=== PATIENT | male | born 1935 | race Caucasian/White ===

== ENCOUNTER 2018-01-31 12:11 | Inpatient (IN) | payer MEDICARE, OTHER ==
[~2018-01-31] VITALS: Ht 172.7 cm; Wt 78.6 kg
[~2018-01-31 12:11] MED LIST: AMLO10TA6 PO; ASPI-496 PO; ATOR40TA78 PO; BENOZEPRIL PO; CLON0.2T PO; DIGO250T PO; FENO200C PO; GEMF600T4 PO; GLIP5TAB10 PO; Hydrocodone Bit/Acetaminophen PO; INSU100I11 SQ-INSULIN; NIFE60TA13 PO; TAMS0.4C2 PO
[2018-01-31] MEDS ORDERED: DILTIAZEM 5 MG/ML, 5ML ONE ×2 (12:29→13:17)
[2018-01-31] MEDS ORDERED: SODIUM CHLORIDE 0.9% 1,000ML IVBOLUS ONE (12:30)
[2018-01-31] MEDS ORDERED: PLEASE ENTER HEIGHT AND WEIGHT MC SCH (12:30)
[2018-01-31] MEDS ORDERED: DILTIAZEM 5 MG/ML, 5ML IV ONE (12:30)
[2018-01-31 13:03] LABS: BASOPHILS % (AUTO) 0 % (0-1); EOSINOPHILS % (AUTO) 0 % (1-7); LYMPHOCYTES # (AUTO) 0.32 x10^3/uL (1-3.4); LYMPHOCYTES % (AUTO) 2 % (22-44); MD NO; MEAN CORPUSCULAR HEMOGLOBIN 32.9 pg (27.5-34.5); MEAN CORPUSCULAR HGB CONC 34.6 g/dL (33.2-36.2); MEAN CORPUSCULAR VOLUME 95.2 fL (81-97); MEAN PLATELET VOLUME 9.5 fL (7.4-10.4); MONOCYTES # (AUTO) 0.65 x10^3/uL (0.2-0.8); MONOCYTES % (AUTO) 5 % (2-9); NEUTROPHILS # (AUTO) 13.17 x10^3/uL (1.8-6.8); NEUTROPHILS % (AUTO) 93 % (42-75); PLATELET COUNT 190 x10^3/uL (130-400); RED CELL DISTRIBUTION WIDTH 13.1 % (9.4-14.8)
[2018-01-31] MEDS: DILTIAZEM 125 MG in DEXTROSE 5% 100 ML IV SCH (13:10)
[2018-01-31 13:16] LABS: ALBUMIN 3.1 g/dL (3.4-5.0); ANION GAP 16 mmol/L (5-15); CALCIUM 8.7 mg/dL (8.5-10.1); CHLORIDE 106 mmol/L (98-107); INTERNATIONAL NORMALIZED RATIO 1.1 (0.93-1.1); PROTHROMBIN TIME 11.3 Seconds (9.6-11.5)
[2018-01-31 13:19] LABS: ALANINE AMINOTRANSFERASE 30 U/L (12-78); BILIRUBIN,TOTAL 1.3 mg/dL (0.2-1.0); CREATINE KINASE, TOTAL 910 U/L (39-308); CREATININE 1.71 mg/dL (0.7-1.3); TOTAL PROTEIN 7.1 g/dL (6.4-8.2); TROPONIN I 0.041 ng/mL (0.000-0.045)
[2018-01-31 13:30] LABS: ALKALINE PHOSPHATASE 88 U/L (45-117); FREE T4 (FREE THYROXINE) 1.16 ng/dL (0.76-1.46)
[2018-01-31] MEDS ORDERED: DILTIAZEM 5 MG/ML, 5ML IVPush ONE (13:30)
[2018-01-31] MEDS ORDERED: hydrALAzine 20 MG/ML, 1ML IV PRN (13:30)
[2018-01-31] MEDS ORDERED: hydrALAzine 20 MG/ML, 1ML ONE (13:46)
[2018-01-31] MEDS ORDERED: LABETALOL 5MG/ML, 20ML IVPush PRN (14:30)
[2018-01-31] MEDS ORDERED: DOCUSATE 100 MG CAPSULE PO PRN (14:30)
[2018-01-31] MEDS ORDERED: GUAIFENESIN/COD200MG-20MG/10ML LIQUID PO PRN (14:30)
[2018-01-31] MEDS ORDERED: ONDANSETRON 2MG/ML, 2ML IVPush PRN (14:30)
[2018-01-31] MEDS ORDERED: ACETAMINOPHEN 325 MG TABLET PO PRN (14:30)
[2018-01-31 14:45] VITALS: BP 182/94
[2018-01-31] MEDS: DILTIAZEM 125 MG in SODIUM CHLORIDE 0.9% 100 ML IV SCH (15:00)
[2018-01-31] MEDS ORDERED: ENOXAPARIN 40 MG/0.4 ML SQ SCH (15:00)
[2018-01-31] MEDS ORDERED: MAGNESIUM SULFATE PMX 2GM/50ML 50 ML IV ONE (15:00)
[2018-01-31] MEDS: CEFDINIR 300 MG CAPSULE PO SCH ×2 (15:06→20:54)
[2018-01-31] MEDS: CLINDAMYCIN 300 MG CAPSULE PO SCH ×2 (15:06→20:54)
[2018-01-31 15:19] VITALS: BP 144/84
[2018-01-31 15:38] LABS: HEMOGLOBIN A1C 8.1 % (4.2-6.3)
[2018-01-31] MEDS: SODIUM CHLORIDE 0.9% 1,000 ML IV SCH (16:48)
[2018-01-31] MEDS: ERYTHROMYCIN OPHTH 0.5%, 1GM EACHEYE SCH ×2 (16:49→20:56)
[2018-01-31] MEDS: INSULIN LISPRO 100 UNITS/ML, PEN SQ-INSULIN SCH ×2 (16:56→21:29)
[2018-01-31 18:48] LABS: MICROSCOPIC INDICATED
[2018-01-31 18:57] LABS: AMPHETAMINE SCREEN, URINE Negative (Negative); BARBITURATE SCREEN, URINE Negative (Negative); BENZODIAZEPINE SCREEN, URINE Negative (Negative); CANNABINOID SCREEN, URINE Negative (Negative); COCAINE SCREEN, URINE Negative (Negative); METHADONE SCREEN, URINE Negative (Negative); OPIATE SCREEN, URINE Negative (Negative)
[2018-01-31 19:00] LABS: CULTURE INDICATED? NO
[2018-01-31 20:45] VITALS: BP 149/64
[2018-01-31] MEDS: GEMFIBROZIL 600 MG TABLET PO SCH (20:54)
[2018-01-31] MEDS: TAMSULOSIN 0.4 MG CAP.ER.24H PO SCH (20:54)
[2018-01-31] MEDS: LACTULOSE 20 GM/30 ML UDC PO SCH (20:54)
[2018-01-31] MEDS: INSULIN GLARGINE 100 UNITS/ML, PEN SQ-INSULIN SCH (21:30)
[2018-02-01] VITALS (7 sets, daily range): BP systolic 94–135; BP diastolic 57–82
[2018-02-01] MEDS: DILTIAZEM 125 MG in DEXTROSE 5% 100 ML IV SCH ×2 (00:37→00:38)
[2018-02-01] MEDS: SODIUM CHLORIDE 0.9% 1,000 ML IV SCH (00:39)
[2018-02-01] MEDS: DILTIAZEM 125 MG in SODIUM CHLORIDE 0.9% 100 ML IV SCH (01:06)
[2018-02-01] MEDS: ASPIRIN 81 MG TABLET EC PO SCH (05:02)
[2018-02-01] MEDS: ERYTHROMYCIN OPHTH 0.5%, 1GM EACHEYE SCH ×4 (05:02→20:30)
[2018-02-01] MEDS: CLINDAMYCIN 300 MG CAPSULE PO SCH ×3 (05:02→22:20)
[2018-02-01 05:25] LABS: BASOPHILS # (AUTO) 0.01 x10^3/uL (0-0.1); BASOPHILS % (AUTO) 0 % (0-1); EOSINOPHILS # (AUTO) 0.02 x10^3/uL (0-0.4); EOSINOPHILS % (AUTO) 0 % (1-7); LYMPHOCYTES # (AUTO) 1.09 x10^3/uL (1-3.4); LYMPHOCYTES % (AUTO) 13 % (22-44); MD NO; MEAN CORPUSCULAR HEMOGLOBIN 32.4 pg (27.5-34.5); MEAN CORPUSCULAR HGB CONC 34.3 g/dL (33.2-36.2); MEAN CORPUSCULAR VOLUME 94.4 fL (81-97); MEAN PLATELET VOLUME 9.3 fL (7.4-10.4); MONOCYTES # (AUTO) 0.65 x10^3/uL (0.2-0.8); MONOCYTES % (AUTO) 8 % (2-9); NEUTROPHILS # (AUTO) 6.41 x10^3/uL (1.8-6.8); NEUTROPHILS % (AUTO) 78 % (42-75); PLATELET COUNT 171 x10^3/uL (130-400); RED CELL DISTRIBUTION WIDTH 13.5 % (9.4-14.8)
[2018-02-01 05:32] LABS: ANION GAP 9 mmol/L (5-15); CALCIUM 8.2 mg/dL (8.5-10.1); CHLORIDE 107 mmol/L (98-107)
[2018-02-01 05:41] LABS: CREATINE KINASE, TOTAL 344 U/L (39-308); CREATININE 2.04 mg/dL (0.7-1.3)
[2018-02-01] MEDS: GEMFIBROZIL 600 MG TABLET PO SCH ×2 (08:43→20:30)
[2018-02-01] MEDS: LACTULOSE 20 GM/30 ML UDC PO SCH ×2 (08:43→20:30)
[2018-02-01] MEDS: CEFDINIR 300 MG CAPSULE PO SCH ×2 (08:43→20:29)
[2018-02-01] MEDS: GLIMEPIRIDE 1 MG TABLET PO SCH (08:43)
[2018-02-01] MEDS: INSULIN LISPRO 100 UNITS/ML, PEN SQ-INSULIN SCH ×4 (08:44→20:28)
[2018-02-01] MEDS ORDERED: BENAZEPRIL 20 MG TABLET PO SCH (09:00)
[2018-02-01] MEDS: ENOXAPARIN 30 MG/0.3 ML SQ SCH (14:28)
[2018-02-01] MEDS: DILTIAZEM 60 MG TABLET PO SCH ×2 (14:28→17:35)
[2018-02-01] MEDS: INSULIN GLARGINE 100 UNITS/ML, PEN SQ-INSULIN SCH (20:29)
[2018-02-01] MEDS: TAMSULOSIN 0.4 MG CAP.ER.24H PO SCH (20:29)
[2018-02-02 02:03] VITALS: BP 119/77
[2018-02-02] MEDS: DILTIAZEM 60 MG TABLET PO SCH ×4 (02:12→20:38)
[2018-02-02 05:03] LABS: BASOPHILS # (AUTO) 0.05 x10^3/uL (0-0.1); BASOPHILS % (AUTO) 1 % (0-1); EOSINOPHILS # (AUTO) 0.06 x10^3/uL (0-0.4); EOSINOPHILS % (AUTO) 1 % (1-7); LYMPHOCYTES # (AUTO) 1.26 x10^3/uL (1-3.4); LYMPHOCYTES % (AUTO) 17 % (22-44); MD NO; MEAN CORPUSCULAR HEMOGLOBIN 32.6 pg (27.5-34.5); MEAN CORPUSCULAR HGB CONC 34.1 g/dL (33.2-36.2); MEAN CORPUSCULAR VOLUME 95.4 fL (81-97); MEAN PLATELET VOLUME 8.9 fL (7.4-10.4); MONOCYTES # (AUTO) 0.59 x10^3/uL (0.2-0.8); MONOCYTES % (AUTO) 8 % (2-9); NEUTROPHILS # (AUTO) 5.31 x10^3/uL (1.8-6.8); NEUTROPHILS % (AUTO) 73 % (42-75); PLATELET COUNT 159 x10^3/uL (130-400); RED BLOOD COUNT 4.08 x10^6/uL (4.38-5.82); RED CELL DISTRIBUTION WIDTH 13.7 % (9.4-14.8)
[2018-02-02 05:24] LABS: CHLORIDE 110 mmol/L (98-107)
[2018-02-02 05:33] LABS: ALANINE AMINOTRANSFERASE 28 U/L (12-78); ALBUMIN 2.3 g/dL (3.4-5.0); ALKALINE PHOSPHATASE 55 U/L (45-117); ANION GAP 10 mmol/L (5-15); BILIRUBIN,TOTAL 0.8 mg/dL (0.2-1.0); CREATININE 2.27 mg/dL (0.7-1.3); TOTAL PROTEIN 5.1 g/dL (6.4-8.2)
[2018-02-02 06:10] VITALS: BP 132/71
[2018-02-02] MEDS: ASPIRIN 81 MG TABLET EC PO SCH (06:11)
[2018-02-02] MEDS: ERYTHROMYCIN OPHTH 0.5%, 1GM EACHEYE SCH ×4 (06:11→20:40)
[2018-02-02] MEDS: CLINDAMYCIN 300 MG CAPSULE PO SCH ×3 (06:11→22:49)
[2018-02-02 06:52] VITALS: BP 132/84
[2018-02-02] MEDS: INSULIN LISPRO 100 UNITS/ML, PEN SQ-INSULIN SCH ×4 (07:00→20:39)
[2018-02-02] MEDS: GEMFIBROZIL 600 MG TABLET PO SCH ×2 (08:45→20:38)
[2018-02-02] MEDS: LACTULOSE 20 GM/30 ML UDC PO SCH (08:45)
[2018-02-02] MEDS: GLIMEPIRIDE 1 MG TABLET PO SCH (08:45)
[2018-02-02] MEDS: CEFDINIR 300 MG CAPSULE PO SCH (08:45)
[2018-02-02] MEDS: SODIUM CHLORIDE 0.9% 1,000 ML IV SCH ×2 (09:37→18:16)
[2018-02-02 13:08] VITALS: BP 117/72
[2018-02-02] MEDS: ENOXAPARIN 30 MG/0.3 ML SQ SCH (15:34)
[2018-02-02 20:25] VITALS: BP_SYST 164; BP_SYST 168; BP_DIAS 74; BP_DIAS 83
[2018-02-02] MEDS: TAMSULOSIN 0.4 MG CAP.ER.24H PO SCH (20:38)
[2018-02-02] MEDS: INSULIN GLARGINE 100 UNITS/ML, PEN SQ-INSULIN SCH (20:39)
[2018-02-03 02:44] VITALS: BP 159/95
[2018-02-03] MEDS: DILTIAZEM 60 MG TABLET PO SCH ×2 (02:49→07:57)
[2018-02-03] MEDS: SODIUM CHLORIDE 0.9% 1,000 ML IV SCH (02:52)
[2018-02-03 05:19] VITALS: BP 161/81
[2018-02-03] MEDS: ERYTHROMYCIN OPHTH 0.5%, 1GM EACHEYE SCH ×2 (05:22→11:10)
[2018-02-03] MEDS: ASPIRIN 81 MG TABLET EC PO SCH (05:22)
[2018-02-03 05:31] LABS: ANION GAP 8 mmol/L (5-15); CALCIUM 7.6 mg/dL (8.5-10.1); CHLORIDE 113 mmol/L (98-107)
[2018-02-03] MEDS: INSULIN LISPRO 100 UNITS/ML, PEN SQ-INSULIN SCH ×2 (07:00→11:00)
[2018-02-03] MEDS ORDERED: DILTIAZEM 30 MG TABLET ONE (07:39)
[2018-02-03] MEDS: GEMFIBROZIL 600 MG TABLET PO SCH (07:58)
[2018-02-03] MEDS: CLINDAMYCIN 300 MG CAPSULE PO SCH (07:58)
[2018-02-03] MEDS: GLIMEPIRIDE 1 MG TABLET PO SCH (07:59)
[2018-02-03 08:00] VITALS: BP 153/80
[2018-02-03] MEDS ORDERED: CEFDINIR 300 MG CAPSULE PO SCH (09:00)
[2018-02-03] MEDS ORDERED: GEMF600T4 PO (10:48)
[2018-02-03] MEDS ORDERED: TAMS-11 PO (10:48)
[2018-02-03] MEDS ORDERED: CLON0.2T10 PO (10:48)
[2018-02-03] MEDS ORDERED: ASPI-621 PO (10:48)
[2018-02-03] MEDS ORDERED: INSU100I13 SQ-INSULIN (10:48)
[2018-02-03] MEDS ORDERED: DILT240C55 PO (10:48)
[2018-02-03] MEDS ORDERED: ERYT1OIN5 EACHEYE (10:48)
[2018-02-03] MEDS ORDERED: GLIM1TAB PO (10:48)
[2018-02-03] MEDS ORDERED: CLIN300C8 PO (10:48)
== END 2018-02-03 13:40 | DRG 871 ==
LOC: ED 13:37 → EDIP 13:38 → ED 13:58 → 5SO 14:35 → DCLOUNGE 02-03 13:25
PROVIDERS: ADMIT Internal Medicine; ATTEND Family Medicine
DX: A41.9 Sepsis, unspecified organism (principal); G93.41 Metabolic encephalopathy; N17.9 Acute kidney failure, unspecified; M62.82 Rhabdomyolysis; L03.113 Cellulitis of right upper limb; I48.91 Unspecified atrial fibrillation; E78.5 Hyperlipidemia, unspecified; E11.22 Type 2 diabetes mellitus with diabetic chronic kidney disease; N18.9 Chronic kidney disease, unspecified; E11.65 Type 2 diabetes mellitus with hyperglycemia; F17.290 Nicotine dependence, other tobacco product, uncomplicated; I13.10 Hypertensive heart and chronic kidney disease without heart failure, with stage 1 through stage 4 chronic kidney disease, or unspecified chronic kidney disease; N40.0 Benign prostatic hyperplasia without lower urinary tract symptoms; Z66 Do not resuscitate; W18.39XA Other fall on same level, initial encounter; Z60.2 Problems related to living alone; S09.93XA Unspecified injury of face, initial encounter; S49.91XA Unspecified injury of right shoulder and upper arm, initial encounter; S89.91XA Unspecified injury of right lower leg, initial encounter; Z86.73 Personal history of transient ischemic attack (TIA), and cerebral infarction without residual deficits; Z82.49 Family history of ischemic heart disease and other diseases of the circulatory system; Y93.89 Activity, other specified; Y92.89 Other specified places as the place of occurrence of the external cause; Y99.8 Other external cause status; Z88.0 Allergy status to penicillin; Z79.899 Other long term (current) drug therapy
CPT/HCPCS: 36415; 70450; 71045; 80048; 80053; 80307; 81001; 82140; 82550; 82962; 83036; 83605; 83735; 84100; 84145; 84439; 84443; 84481; 84484; 85025; 85610; 85730; 87040; 93005; 96372; 96374; 96375; 96376; 99291; G0378; J1650; J0360; J1815; J3475; J7030

== ENCOUNTER 2019-01-20 11:53 | Inpatient (IN) | payer MEDICARE, OTHER ==
[~2019-01-20] VITALS: Ht 172.7 cm; Wt 85.1 kg
[~2019-01-20 11:53] MED LIST changes: -AMLO10TA6 PO; +AMLO10TA8 PO; +ASPI81TA45 PO; +BENA10TA6 PO; +CLIN300C8 PO; +CLON0.2T10 PO; +DIGO125T PO; +DILT240C55 PO; +ERYT1OIN5 EACHEYE; -GEMF600T4 PO; +GEMF600T8 PO; +GLIM1TAB PO; +INSU100I13 SQ-INSULIN; +NIFE10CA49 PO; +TAMS-11 PO
--- NOTE | 2019-01-20 12:09 | NUR ---
GEMA ON SCENE FOR PT ASSISTANCE. UPON ARRIVAL, PT NOTED TO BE LYING IN HIS OWN URINE, UNABLE TO AMBULATE MORE THAN A FEW STEPS AT A TIME. PT AGREED TO COME TO HOSPITAL FOR EVALUATION. ATTACHED TO MONITORS, PROVIDED WITH WARM BLANKETS. PT DENIES ANY FURTHER NEEDS AT THIS TIME.
[2019-01-20] MEDS ORDERED: SODIUM CHLORIDE 0.9% 1,000ML IVBOLUS ONE ×2 (12:30→14:00)
[2019-01-20] MEDS ORDERED: SODIUM CHLORIDE FLUSH 10ML SYR IVF ONE (12:30)
[2019-01-20 12:48] LABS: MEAN CORPUSCULAR HEMOGLOBIN 32.5 pg (27.5-34.5); MEAN CORPUSCULAR HGB CONC 33.6 g/dL (33.2-36.2); MEAN CORPUSCULAR VOLUME 96.7 fL (81-97); MEAN PLATELET VOLUME 9.4 fL (7.4-10.4); PLATELET COUNT 234 x10^3/uL (130-400); RED BLOOD COUNT 4.94 x10^6/uL (4.38-5.82); RED CELL DISTRIBUTION WIDTH 14.4 % (9.4-14.8)
[2019-01-20 13:00] LABS: CHLORIDE 106 mmol/L (98-107)
[2019-01-20 13:06] LABS: BASOPHILS # (AUTO) 0.01 x10^3/uL (0-0.1); BASOPHILS % (AUTO) 0 % (0-1); EOSINOPHILS # (AUTO) 0.06 x10^3/uL (0-0.4); EOSINOPHILS % (AUTO) 0 % (1-7); LYMPHOCYTES # (AUTO) 0.73 x10^3/uL (1-3.4); LYMPHOCYTES % (AUTO) 4 % (22-44); MD SCAN; MONOCYTES # (AUTO) 0.61 x10^3/uL (0.2-0.8); MONOCYTES % (AUTO) 3 % (2-9); NEUTROPHILS # (AUTO) 17.08 x10^3/uL (1.8-6.8); NEUTROPHILS % (AUTO) 92 % (42-75)
[2019-01-20 13:11] LABS: ALBUMIN 2.9 g/dL (3.4-5.0); ANION GAP 5 mmol/L (5-15); CALCIUM 9.3 mg/dL (8.5-10.1); CREATININE 1.66 mg/dL (0.7-1.3); TROPONIN I < 0.015 ng/mL (0.000-0.045)
[2019-01-20] MEDS ORDERED: AZITHROMYCIN 500 MG in SODIUM CHLORIDE 0.9% 250 ML IV ONE (13:30)
[2019-01-20] MEDS ORDERED: CEFTRIAXONE PMX 1GM/50ML 50 ML IV ONE (13:30)
--- NOTE | 2019-01-20 13:56 | NUR ---
LAB AT BEDSIDE TO DRAW CULTURES.
[2019-01-20] MEDS ORDERED: CEFTRIAXONE PMX 1GM/50ML 50 ML ONE (14:11)
--- NOTE | 2019-01-20 15:00 | NUR ---
REPORT FROM MONICA MEJIAS
--- NOTE | 2019-01-20 15:00 | NUR ---
PT GIVEN A BED BATH, CLOTHES CHANGED, NEW BRIEF APPLIED. LARGE AMOUNTS OF FOUL SMELLING, WHITE CURD-LIKE SUBSTANCE NOTED AROUND HEAD OF UNCIRCUMSIZED PENIS, TESTICLES, AND INNER THIGHS. PENIS AND SCROTUM VERY RED, FORESKIN SWOLLEN AND DIFFICULT TO RETRACT. PT PROVIDED WITH NEW LINENS, AND WARM BLANKETS. CALL LIGHT IN REACH. DENIES ANY FURTHER NEEDS OR CONCERNS AT THIS TIME.
[2019-01-20] MEDS ORDERED: DOCUSATE 100 MG CAPSULE PO PRN (16:00)
[2019-01-20] MEDS: NYSTATIN TOPICAL POWDER 15GM TP SCH ×2 (16:00→21:45)
[2019-01-20] MEDS ORDERED: ONDANSETRON ODT 4 MG PO PRN (16:00)
[2019-01-20] MEDS ORDERED: POLYETHYLENE GLYCOL 17 GM PACKET PO PRN (16:00)
[2019-01-20] MEDS ORDERED: ACETAMINOPHEN 325 MG TABLET PO PRN (16:00)
[2019-01-20] MEDS ORDERED: LIDODERM 5% PATCH TD PRN (16:00)
[2019-01-20] MEDS ORDERED: GUAIFENESIN/DM 200-20MG, 10ML UDC PO PRN (16:00)
--- NOTE | 2019-01-20 16:15 | NUR ---
ATTEMPTED TO UPDATE MED RECC-PATIENT REPORT "I DON'T TAKE ANY MEDICINES." DUBIOUS HISTORIAN. ALSO PATIENT WITH EXTENSIVE MED LIST IN THE COMPUTER- WILL NOT TOUCH TO STRAIGHT CATH SHORTLY 1GM OF ROCEPHIN COMPLETE
[2019-01-20 16:32] LABS: HEMOGLOBIN A1C 11.6 % (4.2-6.3)
--- NOTE | 2019-01-20 16:42 | NUR ---
STRAIGHT CATHERIZED FOR 250ML-SAMPLE SENT
[2019-01-20 16:54] LABS: CULTURE INDICATED? NO; MICROSCOPIC AUTO
--- NOTE | 2019-01-20 18:08 | NUR ---
REPORT TO BERTRAND MEJIAS FOR LUNCH COVERAGE
[2019-01-20] MEDS ORDERED: MAGNESIUM SULFATE PMX 2GM/50ML 50 ML IV ONE (19:00)
[2019-01-20] MEDS ORDERED: DEXTROSE 50%, 50ML SYRINGE IVPush PRN (19:00)
[2019-01-20] MEDS ORDERED: DEXTROSE 4 GM TAB.CHEW PO PRN (19:00)
[2019-01-20] MEDS ORDERED: GLUCAGON 1 MG IM PRN (19:00)
[2019-01-20 20:00] VITALS: BP 180/116
[2019-01-20 20:27] VITALS: BP 185/110
[2019-01-20] MEDS: hydrALAzine 20 MG/ML, 1ML IVPush PRN (20:42)
[2019-01-20] MEDS ORDERED: INSULIN GLARGINE 100 UNITS/ML, PEN SQ-INSULIN SCH (21:00)
[2019-01-20] MEDS: HEPARIN 5,000 UNITS/ML, 1ML SQ SCH (21:45)
[2019-01-20] MEDS: INSULIN LISPRO 100 UNITS/ML, PEN SQ-INSULIN SCH (21:46)
[2019-01-20] MEDS: SODIUM CHLORIDE FLUSH 10ML SYR IVF SCH (21:46)
[2019-01-21] VITALS (8 sets, daily range): BP systolic 145–180; BP diastolic 83–127
[2019-01-21 05:07] LABS: CHLORIDE 109 mmol/L (98-107)
[2019-01-21 05:16] LABS: ANION GAP 6 mmol/L (5-15); CALCIUM 8.8 mg/dL (8.5-10.1)
[2019-01-21 05:30] LABS: BASOPHILS # (AUTO) 0.02 x10^3/uL (0-0.1); BASOPHILS % (AUTO) 0 % (0-1); EOSINOPHILS # (AUTO) 0.03 x10^3/uL (0-0.4); EOSINOPHILS % (AUTO) 0 % (1-7); LYMPHOCYTES # (AUTO) 1.46 x10^3/uL (1-3.4); LYMPHOCYTES % (AUTO) 14 % (22-44); MD NO; MEAN CORPUSCULAR HEMOGLOBIN 32.4 pg (27.5-34.5); MEAN CORPUSCULAR HGB CONC 33.6 g/dL (33.2-36.2); MEAN CORPUSCULAR VOLUME 96.5 fL (81-97); MEAN PLATELET VOLUME 9.6 fL (7.4-10.4); MONOCYTES # (AUTO) 0.44 x10^3/uL (0.2-0.8); MONOCYTES % (AUTO) 4 % (2-9); NEUTROPHILS # (AUTO) 8.46 x10^3/uL (1.8-6.8); NEUTROPHILS % (AUTO) 81 % (42-75); PLATELET COUNT 198 x10^3/uL (130-400); RED BLOOD COUNT 4.33 x10^6/uL (4.38-5.82); RED CELL DISTRIBUTION WIDTH 14.6 % (9.4-14.8)
[2019-01-21] MEDS: HEPARIN 5,000 UNITS/ML, 1ML SQ SCH ×3 (06:03→21:10)
[2019-01-21] MEDS: INSULIN LISPRO 100 UNITS/ML, PEN SQ-INSULIN SCH ×4 (08:13→21:20)
[2019-01-21] MEDS: NYSTATIN TOPICAL POWDER 15GM TP SCH ×3 (08:27→21:20)
[2019-01-21] MEDS: hydrALAzine 20 MG/ML, 1ML IVPush PRN (08:28)
[2019-01-21] MEDS: SODIUM CHLORIDE FLUSH 10ML SYR IVF SCH ×2 (08:30→20:59)
[2019-01-21] MEDS ORDERED: SODIUM CHLORIDE INHALATION 7%, 4 ML NPPB ONE (10:00)
[2019-01-21] MEDS ORDERED: BENA40TA3 PO (13:13)
[2019-01-21] MEDS ORDERED: ATOR40TA78 PO (13:13)
[2019-01-21] MEDS ORDERED: INSU100V13 INJ (13:13)
[2019-01-21] MEDS: AZITHROMYCIN 500 MG in SODIUM CHLORIDE 0.9% 250 ML IV SCH (14:05)
[2019-01-21] MEDS: CEFTRIAXONE PMX 1GM/50ML 50 ML IV SCH ×2 (14:06→17:20)
[2019-01-21] MEDS: TAMSULOSIN 0.4 MG CAP.ER.24H PO SCH (20:59)
[2019-01-21] MEDS: ATORVASTATIN 40 MG TABLET PO SCH (20:59)
[2019-01-21] MEDS: GEMFIBROZIL 600 MG TABLET PO SCH (20:59)
[2019-01-21] MEDS: INSULIN GLARGINE 100 UNITS/ML, PEN SQ-INSULIN SCH (21:21)
[2019-01-22 00:12] VITALS: BP 177/97
[2019-01-22 01:09] VITALS: BP 171/95
[2019-01-22] MEDS: hydrALAzine 20 MG/ML, 1ML IVPush PRN (01:12)
[2019-01-22 01:55] VITALS: BP 157/96
[2019-01-22] MEDS: HEPARIN 5,000 UNITS/ML, 1ML SQ SCH ×3 (05:46→20:47)
[2019-01-22 06:37] VITALS: BP 147/90
[2019-01-22] MEDS: INSULIN LISPRO 100 UNITS/ML, PEN SQ-INSULIN SCH ×5 (08:42→20:58)
[2019-01-22] MEDS: BENAZEPRIL 20 MG TABLET PO SCH (08:42)
[2019-01-22] MEDS: DIGOXIN 0.125 MG TABLET PO SCH (08:43)
[2019-01-22] MEDS: NYSTATIN TOPICAL POWDER 15GM TP SCH ×3 (08:43→20:47)
[2019-01-22] MEDS: AMLODIPINE 5 MG TABLET PO SCH (08:43)
[2019-01-22] MEDS: GEMFIBROZIL 600 MG TABLET PO SCH ×2 (08:43→20:46)
[2019-01-22] MEDS: SODIUM CHLORIDE FLUSH 10ML SYR IVF SCH ×2 (08:45→20:47)
[2019-01-22 09:55] LABS: BASOPHILS # (AUTO) 0.06 x10^3/uL (0-0.1); BASOPHILS % (AUTO) 1 % (0-1); EOSINOPHILS # (AUTO) 0.08 x10^3/uL (0-0.4); EOSINOPHILS % (AUTO) 1 % (1-7); LYMPHOCYTES # (AUTO) 1.12 x10^3/uL (1-3.4); LYMPHOCYTES % (AUTO) 12 % (22-44); MD NO; MEAN CORPUSCULAR HGB CONC 33.2 g/dL (33.2-36.2); MEAN CORPUSCULAR VOLUME 96.4 fL (81-97); MEAN PLATELET VOLUME 9.3 fL (7.4-10.4); MONOCYTES # (AUTO) 0.45 x10^3/uL (0.2-0.8); MONOCYTES % (AUTO) 5 % (2-9); NEUTROPHILS # (AUTO) 7.47 x10^3/uL (1.8-6.8); NEUTROPHILS % (AUTO) 81 % (42-75); PLATELET COUNT 201 x10^3/uL (130-400); RED BLOOD COUNT 4.68 x10^6/uL (4.38-5.82); RED CELL DISTRIBUTION WIDTH 13.9 % (9.4-14.8)
[2019-01-22 10:04] LABS: CHLORIDE 104 mmol/L (98-107)
[2019-01-22 10:05] LABS: ANION GAP 8 mmol/L (5-15); CALCIUM 8.3 mg/dL (8.5-10.1); CREATININE 1.58 mg/dL (0.7-1.3)
[2019-01-22 13:12] VITALS: BP 124/71
[2019-01-22] MEDS: AZITHROMYCIN 500 MG in SODIUM CHLORIDE 0.9% 250 ML IV SCH (13:45)
[2019-01-22] MEDS: CEFTRIAXONE PMX 1GM/50ML 50 ML IV SCH (17:16)
[2019-01-22 18:31] VITALS: BP 164/81
[2019-01-22] MEDS: TAMSULOSIN 0.4 MG CAP.ER.24H PO SCH (20:47)
[2019-01-22] MEDS: ATORVASTATIN 40 MG TABLET PO SCH (20:47)
[2019-01-22] MEDS: INSULIN GLARGINE 100 UNITS/ML, PEN SQ-INSULIN SCH (20:57)
[2019-01-23 01:19] VITALS: BP 177/93
[2019-01-23] MEDS: hydrALAzine 20 MG/ML, 1ML IVPush PRN (01:47)
[2019-01-23] MEDS ORDERED: LORazepam 2 MG/ML, 1ML IVPush ONE (02:30)
[2019-01-23] MEDS: HEPARIN 5,000 UNITS/ML, 1ML SQ SCH ×3 (05:37→20:48)
[2019-01-23 09:22] VITALS: BP 167/87
[2019-01-23] MEDS: AMLODIPINE 5 MG TABLET PO SCH (09:34)
[2019-01-23] MEDS: GEMFIBROZIL 600 MG TABLET PO SCH ×2 (09:34→20:48)
[2019-01-23] MEDS: BENAZEPRIL 20 MG TABLET PO SCH (09:35)
[2019-01-23] MEDS: DIGOXIN 0.125 MG TABLET PO SCH (09:35)
[2019-01-23] MEDS: INSULIN LISPRO 100 UNITS/ML, PEN SQ-INSULIN SCH ×4 (09:36→20:48)
[2019-01-23] MEDS: SODIUM CHLORIDE FLUSH 10ML SYR IVF SCH ×2 (09:36→20:49)
[2019-01-23] MEDS ORDERED: INSTRUCTION SEE COMMENTS XX PRN (10:00)
[2019-01-23] MEDS ORDERED: PHARMACY INSTRUCTION MC PRN (10:00)
[2019-01-23] MEDS ORDERED: QUETIAPINE 25MG TABLET PO PRN (10:00)
[2019-01-23 10:57] LABS: BASOPHILS # (AUTO) 0.07 x10^3/uL (0-0.1); BASOPHILS % (AUTO) 1 % (0-1); EOSINOPHILS # (AUTO) 0.04 x10^3/uL (0-0.4); EOSINOPHILS % (AUTO) 0 % (1-7); LYMPHOCYTES # (AUTO) 0.94 x10^3/uL (1-3.4); LYMPHOCYTES % (AUTO) 10 % (22-44); MD NO; MEAN CORPUSCULAR HEMOGLOBIN 32.1 pg (27.5-34.5); MEAN CORPUSCULAR HGB CONC 33.9 g/dL (33.2-36.2); MEAN CORPUSCULAR VOLUME 94.7 fL (81-97); MEAN PLATELET VOLUME 9.3 fL (7.4-10.4); MONOCYTES # (AUTO) 0.59 x10^3/uL (0.2-0.8); MONOCYTES % (AUTO) 6 % (2-9); NEUTROPHILS # (AUTO) 7.83 x10^3/uL (1.8-6.8); NEUTROPHILS % (AUTO) 83 % (42-75); PLATELET COUNT 214 x10^3/uL (130-400); RED BLOOD COUNT 4.68 x10^6/uL (4.38-5.82); RED CELL DISTRIBUTION WIDTH 14.1 % (9.4-14.8)
[2019-01-23 11:11] LABS: ANION GAP 8 mmol/L (5-15); CALCIUM 8.7 mg/dL (8.5-10.1); CHLORIDE 105 mmol/L (98-107); CREATININE 1.58 mg/dL (0.7-1.3)
[2019-01-23] MEDS: NYSTATIN TOPICAL POWDER 15GM TP SCH ×3 (12:41→20:49)
[2019-01-23] MEDS: AZITHROMYCIN 500 MG in SODIUM CHLORIDE 0.9% 250 ML IV SCH (13:40)
[2019-01-23 15:01] VITALS: BP 118/76
[2019-01-23] MEDS: CEFTRIAXONE PMX 1GM/50ML 50 ML IV SCH (17:25)
[2019-01-23 20:44] VITALS: BP 130/85
[2019-01-23] MEDS: ATORVASTATIN 40 MG TABLET PO SCH (20:48)
[2019-01-23] MEDS: TAMSULOSIN 0.4 MG CAP.ER.24H PO SCH (20:48)
[2019-01-23] MEDS ORDERED: INSULIN GLARGINE 100 UNITS/ML, PEN SQ-INSULIN SCH (21:00)
[2019-01-23] MEDS ORDERED: MELATONIN 3 MG TABLET PO SCH (21:00)
[2019-01-24 00:43] VITALS: BP 129/84
[2019-01-24 05:10] LABS: BASOPHILS # (AUTO) 0.03 x10^3/uL (0-0.1); BASOPHILS % (AUTO) 0 % (0-1); EOSINOPHILS # (AUTO) 0.17 x10^3/uL (0-0.4); EOSINOPHILS % (AUTO) 2 % (1-7); LYMPHOCYTES % (AUTO) 17 % (22-44); MD NO; MEAN CORPUSCULAR HEMOGLOBIN 32.7 pg (27.5-34.5); MEAN CORPUSCULAR HGB CONC 33.7 g/dL (33.2-36.2); MEAN CORPUSCULAR VOLUME 97.1 fL (81-97); MEAN PLATELET VOLUME 9.5 fL (7.4-10.4); MONOCYTES # (AUTO) 0.63 x10^3/uL (0.2-0.8); MONOCYTES % (AUTO) 7 % (2-9); NEUTROPHILS # (AUTO) 6.56 x10^3/uL (1.8-6.8); NEUTROPHILS % (AUTO) 74 % (42-75); PLATELET COUNT 235 x10^3/uL (130-400)
[2019-01-24 05:19] LABS: ANION GAP 7 mmol/L (5-15); CALCIUM 8.7 mg/dL (8.5-10.1); CHLORIDE 107 mmol/L (98-107)
[2019-01-24 05:20] LABS: CREATININE 1.76 mg/dL (0.7-1.3)
[2019-01-24] MEDS: HEPARIN 5,000 UNITS/ML, 1ML SQ SCH ×2 (05:23→11:59)
[2019-01-24 07:33] VITALS: BP 159/109
[2019-01-24] MEDS: INSULIN LISPRO 100 UNITS/ML, PEN SQ-INSULIN SCH ×3 (07:50→16:26)
[2019-01-24] MEDS: GEMFIBROZIL 600 MG TABLET PO SCH (07:51)
[2019-01-24] MEDS: NYSTATIN TOPICAL POWDER 15GM TP SCH ×2 (07:51→16:26)
[2019-01-24] MEDS: SODIUM CHLORIDE FLUSH 10ML SYR IVF SCH (07:51)
[2019-01-24] MEDS: DIGOXIN 0.125 MG TABLET PO SCH (07:51)
[2019-01-24] MEDS: BENAZEPRIL 20 MG TABLET PO SCH (07:51)
[2019-01-24] MEDS: AMLODIPINE 5 MG TABLET PO SCH (07:51)
[2019-01-24] MEDS: AZITHROMYCIN 500 MG in SODIUM CHLORIDE 0.9% 250 ML IV SCH (13:26)
[2019-01-24 13:31] VITALS: BP 129/77
[2019-01-24] MEDS ORDERED: INSU100I11 SQ-INSULIN (16:14)
[2019-01-24] MEDS ORDERED: NYST15PO2 TP (16:14)
[2019-01-24] MEDS ORDERED: QUET25TA7 PO (16:14)
[2019-01-24] MEDS ORDERED: MELA3TAB56 PO (16:14)
[2019-01-24] MEDS ORDERED: CEFD300C37 PO (16:14)
[2019-01-24] MEDS ORDERED: INSU100I13 SQ-INSULIN (16:14)
[2019-01-24] MEDS ORDERED: POLY17PO5 PO (16:14)
[2019-01-24] MEDS ORDERED: CEFDINIR 300 MG CAPSULE PO SCH (16:30)
== END 2019-01-24 17:25 | DRG 871 ==
LOC: ED 13:39 → EDIP 15:45 → 4WST 20:02
PROVIDERS: ADMIT Internal Medicine; ATTEND Internal Medicine
DX: A41.9 Sepsis, unspecified organism (principal); J15.9 Unspecified bacterial pneumonia; I48.20 Chronic atrial fibrillation, unspecified; B37.2 Candidiasis of skin and nail; E11.22 Type 2 diabetes mellitus with diabetic chronic kidney disease; E11.65 Type 2 diabetes mellitus with hyperglycemia; E78.5 Hyperlipidemia, unspecified; E83.42 Hypomagnesemia; I12.9 Hypertensive chronic kidney disease with stage 1 through stage 4 chronic kidney disease, or unspecified chronic kidney disease; I25.10 Atherosclerotic heart disease of native coronary artery without angina pectoris; N18.9 Chronic kidney disease, unspecified; I34.0 Nonrheumatic mitral (valve) insufficiency; N40.0 Benign prostatic hyperplasia without lower urinary tract symptoms; R29.6 Repeated falls; R32 Unspecified urinary incontinence; Z66 Do not resuscitate; Z79.4 Long term (current) use of insulin; Z68.28 Body mass index [BMI] 28.0-28.9, adult; Z86.73 Personal history of transient ischemic attack (TIA), and cerebral infarction without residual deficits; Z87.891 Personal history of nicotine dependence; Z91.14 Patient's other noncompliance with medication regimen; Z91.81 History of falling; Z88.0 Allergy status to penicillin; R41.89 Other symptoms and signs involving cognitive functions and awareness
CPT/HCPCS: 36415; 71045; 80048; 81001; 82040; 82962; 83036; 83605; 83735; 84443; 84484; 85025; 87040; 87081; 93005; 94640; 96361; 96365; G0378; J0456; J0696; J1644; 92523-GN; G0515-GN; J0360; J1815; J2060; J3475; J7030; J7050